=== PATIENT | female | born 1995 | race African-American/Black ===

== ENCOUNTER 2016-06-14 17:23 | Emergency (ER) | payer BC, MEDICAID ==
[~2016-06-14] VITALS: Ht 165.1 cm; Wt 106.6 kg
[~2016-06-14 17:23] MED LIST: PREN-145 OR
[2016-06-14 20:47] VITALS: BP 135/70
== END 2016-06-14 20:53 | disposition home or self-care (01) ==
LOC: ER 17:37
DX: J40 Bronchitis, not specified as acute or chronic (principal); Z87.440 Personal history of urinary (tract) infections; J45.909 Unspecified asthma, uncomplicated

== ENCOUNTER 2016-09-05 23:02 | Emergency (ER) | payer BC, OTHER ==
[~2016-09-05] VITALS: Ht 165.1 cm; Wt 103.0 kg
[2016-09-05 23:33] VITALS: BP 121/74
== END 2016-09-06 02:11 | disposition left against medical advice (07) ==
LOC: ER 23:02
DX: H92.01 Otalgia, right ear (principal); R50.9 Fever, unspecified; Z53.21 Procedure and treatment not carried out due to patient leaving prior to being seen by health care provider

== ENCOUNTER 2017-11-06 11:57 | Emergency (ER) | payer BC, OTHER ==
[~2017-11-06] VITALS: Ht 165.1 cm; Wt 108.9 kg
[2017-11-06 13:06] VITALS: BP 144/71
== END 2017-11-06 14:00 | disposition home or self-care (01) ==
LOC: ER 11:58
DX: S92.532A Displaced fracture of distal phalanx of left lesser toe(s), initial encounter for closed fracture (principal); J45.909 Unspecified asthma, uncomplicated; Z88.6 Allergy status to analgesic agent; Z88.8 Allergy status to other drugs, medicaments and biological substances; W20.8XXA Other cause of strike by thrown, projected or falling object, initial encounter; Y93.89 Activity, other specified; Y99.8 Other external cause status; Y92.89 Other specified places as the place of occurrence of the external cause
CPT/HCPCS: 73630; 99284; L3260

== ENCOUNTER 2023-08-13 19:27 | Observation (INO) | payer MEDICAID ==
[~2023-08-13] VITALS: Ht 165.1 cm; Wt 122.5 kg
[2023-08-13 20:46] LABS: Basophils # (auto) 0 10 ^3/uL (0-0.2); Basophils % (auto) 0.2 % (0.0-2.0); Eosinophils # (auto) 0.1 10 ^3/uL (0-0.8); Lymphocytes # (auto) 1.9 10 ^3/uL (0.4-5.4); Monocytes # (auto) 0.7 10 ^3/uL (0-1.3); Neutrophils # (auto) 7.3 10 ^3/uL (1.6-8.6)
[2023-08-13 20:48] LABS: Eosinophils % (auto) 0.6 % (0.0-7.0); Hematocrit 33.2 % (36.0-46.0); Hemoglobin 10.9 g/dL (12.2-16.2); Lymphocytes % (auto) 19.3 % (10.0-50.0); Mean Corpuscular Hemoglobin 25.8 pg (28.0-32.0); Mean Corpuscular Hgb Conc. 32.9 g/dL (32.0-36.0); Mean Corpuscular Volume 78.3 fL (80.0-100.0); Monocytes % (auto) 6.6 % (0.0-12.0); Neutrophils % (auto) 73.3 % (37.0-80.0); Nucleated Red Blood Cells % 0.1 %; Red Blood Cells 4.23 10^6/uL (4.0-5.20)
[2023-08-13 21:09] LABS: INR 0.95 (0.9-1.15); Partial Thromboplastin Time 25.8 SEC (24.5-34.5); Prothrombin Time 10.1 sec (9.3-11.8)
[2023-08-13 21:16] LABS: Albumin 3.5 g/dL (3.2-4.8); Alkaline Phosphatase 98 U/L (46-116); Anion Gap 8 (5-15); Aspartate Aminotransferase < 8 U/L (13-40); BUN/Creatinine Ratio 8.5 (10.0-20.0); Bilirubin, Total 0.2 mg/dL (0.2-1.0); Blood Urea Nitrogen 5 mg/dL (9-23); Calcium 8.9 mg/dL (8.7-10.4); Carbon Dioxide 19 mmol/L (20-30); Chloride 109 mmol/L (98-107); Glucose 98 mg/dL (74-106); Potassium 3.7 mmol/L (3.5-5.1); Sodium 136 mmol/L (136-145); Total Protein 6.5 g/dL (5.7-8.2); Uric Acid 3.5 mg/dL (3.1-7.8)
[2023-08-13 21:17] LABS: Alanine Aminotransferase < 9 U/L (7-40)
[2023-08-13 22:01] LABS: Creatinine, Urine 153.4 mg/dL (30.0-125.0); Urine Protein/Creatinine Ratio 0.14
== END 2023-08-13 23:23 | disposition home or self-care (01) ==
LOC: LDRP 19:27
PROVIDERS: ADMIT Obstetrics & Gynecology; ATTEND Obstetrics & Gynecology
DX: O36.8130 Decreased fetal movements, third trimester, not applicable or unspecified (principal); O26.893 Other specified pregnancy related conditions, third trimester; R51.9 Headache, unspecified; R10.9 Unspecified abdominal pain; Z3A.34 34 weeks gestation of pregnancy
CPT/HCPCS: 36415; 59025; 76818; 80053; 81002; 82570; 84156; 84550; 85025; 85610; 85730; 94760; G0378